=== PATIENT | female | born 1990 | race American Indian/Alaskan Native ===

== ENCOUNTER 2019-04-30 14:17 | Emergency (ER) | payer MEDICAID ==
[2019-04-30 14:30] VITALS: BP 131/81
--- NOTE | 2019-04-30 14:34 | Emergency Department Report ---
Blank Doc - Documentation Documentation: 28 y o female presents with dry cough, feeling weak and sick from mildew in her home a;lso cc of n/v for a while lmp May, unsure of preg
[2019-04-30 15:47] LABS: Basophils # (Auto) 0.1 K/mm3 (0.0-0.1); Basophils % (Auto) 0.7 % (0.0-1.8); Eosinophils % (Auto) 0.4 % (0.0-4.3); Hematocrit 32.8 % (30.3-42.9); Hemoglobin 10.6 gm/dl (10.1-14.3); Lymphocytes # (Auto) 2.8 K/mm3 (1.2-5.4); Lymphocytes % (Auto) 41.4 % (13.4-35.0); Mean Corpuscular HGB Conc 32 % (30-34); Mean Corpuscular Volume 81 fl (79-97); Monocytes # (Auto) 0.4 K/mm3 (0.0-0.8); Monocytes % (Auto) 5.9 % (0.0-7.3); Platelet Count 349 K/mm3 (140-440); Red Blood Count 4.05 M/mm3 (3.65-5.03); Red Cell Distribution Width 17.4 % (13.2-15.2)
[2019-04-30 16:06] LABS: BUN/Creatinine Ratio 12; Blood Urea Nitrogen 7 mg/dL (7-17); Calcium 9.7 mg/dL (8.4-10.2); Hemolysis Index 3
--- NOTE | 2019-04-30 16:33 | Emergency Department Report ---
Vomiting/Diarrhea - HPI Chief Complaint: Nausea/Vomiting/Diarrhea Stated Complaint: VOMITING/DIZZY Time Seen by Provider: 04/30/19 14:27 Duration: 2 weeks. Nausea/Vomiting Severity: Mild Diarrhea Severity: None Pain Severity: None Other History: 28-year-old -[place] female presents to the emergency room complaining of vomiting 1 week dizziness 2 days. Patient denies any vaginal discharge vaginal bleeding or abdominal pain. Patient reports her last menstrual period was sometime in January. Patient does admit to having unprotected intercourse. Patient is 3 para 1. Patient currently does not have a primary care provider or [facility] provider. Patient has a past medical history asthma. Surgical history of a . ED Review of Systems ROS: Stated complaint: VOMITING/DIZZY Other details as noted in HPI Comment: All other systems reviewed and negative Gastrointestinal: nausea, vomiting Neurological: other (lightheadedness) ED Past Medical Hx - Past Medical History Previous Medical History?: Yes Hx Congestive Heart Failure: Yes Hx Psychiatric Treatment: Yes (bipolar) Hx Asthma: Yes - Surgical History Past Surgical History?: Yes Additional Surgical History: - Social History Smoking Status: Never Smoker Substance Use Type: None - Medications Home Medications: Home Medications Medication Instructions Recorded Confirmed Last Taken Type Goldie Root [Goldie] 250 mg PO QID PRN #40 capsule 04/30/19 Unknown Rx Pyridoxine [Vitamin B-6 50MG TAB] 50 mg PO DAILY #30 tab 04/30/19 Unknown Rx Vomiting Diarrhea Exam - Exam General: Vital signs noted. No distress. Alert and acting appropriately. HEENT: Yes Moist Mucous Membranes, No Pharyngeal Erythema, No Pharyngeal Exuda keaton, No Rhinorrhea, No Conjuctival Injection, No Frontal Tenderness, No Maxillary Tenderness Neck: No Adenopathy, No Rigidity Lungs: Yes Clear Lung Sounds, Yes Good Air Exchange, No Wheezes, No Stridor, No Cough, No Nasal Flaring, No Retractions, No Use of Accessory Muscles Heart exam: Regular: Yes, Murmur: No, Tachycardia: No Abdomen: Tenderness: No, Peritoneal Signs: No, Distention: No, Hyperactive Bowel sounds: No Skin exam: Rash: No, Edema: No, Normal turgor: Yes Neurologic: Alert and oriented, no deficits. Musculoskeletal: Unremarkable. ED Course Vital Signs 04/30/19 14:27 Temperature 98.0 F Pulse Rate 87 Respiratory 18 Rate Blood Pressure 131/81 O2 Sat by Pulse 100 Oximetry ED Medical Decision Making - Lab Data Result diagrams: 04/30/19 15:20 04/30/19 15:20 Temp Pulse Resp BP Pulse Ox 98.0 F 87 18 131/81 100 04/30/19 14:27 04/30/19 14:27 04/30/19 14:27 04/30/19 14:27 04/30/19 14:27 Laboratory Tests 04/30/19 04/30/19 04/30/19 15:20 15:20 15:20 WBC 6.8 RBC 4.05 Hgb 10.6 Hct 32.8 MCV 81 MCH 26 L MCHC 32 RDW 17.4 H Plt Count 349 Lymph % (Auto) 41.4 H Emmet % (Auto) 5.9 Eos % (Auto) 0.4 Baso % (Auto) 0.7 Lymph # 2.8 Emmet # 0.4 Eos # 0.0 Baso # 0.1 Seg Neutrophils % 51.6 Seg Neutrophils # 3.5 Sodium 135 L Potassium 4.3 Chloride 100.5 Carbon Dioxide 22 Anion Gap 17 BUN 7 Creatinine 0.6 L Estimated GFR > 60 BUN/Creatinine Ratio 12 Glucose 97 Calcium 9.7 HCG, Qual Positive Critical care attestation.: If time is entered above; I have spent that time in minutes in the direct care of this critically ill patient, excluding procedure time. ED Disposition Clinical Impression: Nausea and vomiting during , Disposition: DC-01 TO HOME OR SELFCARE Is pt being admited?: No Does the pt Need Aspirin: No Condition: Stable Instructions: Hyperemesis Gravidarum (ED), Morning Sickness (ED), (ED) Additional Instructions: vitamins. You can take goldie root and B6 for nausea and vomiting. Follow up with a [facility] provider as listed several below for your convenience. Prescriptions: Goldie Root [Goldie] 250 mg PO QID PRN #40 capsule PRN Reason: Nausea And Vomiting Pyridoxine [Vitamin B-6 50MG TAB] 50 mg PO DAILY #30 tab Referrals: HAILEE CLEMENTS MD [Primary Care Provider] - 3-5 Days [facility] [Provider Group] - 3-5 Days [facility] [Provider Group] - 3-5 Days [facility] [Provider Group] - 3-5 Days Forms: Work/School Release Form(ED), Accompanied Note
== END 2019-04-30 17:00 | disposition home or self-care (01) ==
LOC: ED 14:17
DX: O21.8 Other vomiting complicating pregnancy (principal); O26.899 Other specified pregnancy related conditions, unspecified trimester; R11.0 Nausea; O99.519 Diseases of the respiratory system complicating pregnancy, unspecified trimester; J45.909 Unspecified asthma, uncomplicated; O99.340 Other mental disorders complicating pregnancy, unspecified trimester; F31.9 Bipolar disorder, unspecified; I50.9 Heart failure, unspecified; Z91.013 Allergy to seafood; Z91.018 Allergy to other foods
CPT/HCPCS: 36415; 80048; 84703; 85025

== ENCOUNTER 2019-10-04 13:15 | Outpatient (CLI) | payer MEDICAID ==
[2019-10-04 13:48] VITALS: BP 119/60
[2019-10-04 14:08] LABS: Bacteria,Urine 1+ /HPF (Negative); Bilirubin,Urine NEG (Negative); Blood,Urine NEG (Negative); Color,Urine Yellow (Yellow); Mucus,Urine FEW /HPF; Protein,Urine <15 mg/dL mg/dL (Negative); Urobilinogen,Urine < 2.0 mg/dL (<2.0)
[2019-10-04 14:15] LABS: Amphetamine Screen,Urine PRESUMPTIVE NEGATIVE; Benzodiazepines Screen,Urine PRESUMPTIVE NEGATIVE; Cannabinoid Screen,Urine PRESUMPTIVE NEGATIVE; Cocaine Screen,Urine PRESUMPTIVE NEGATIVE; Methadone Screen,Urine PRESUMPTIVE NEGATIVE; Opiate Screen,Urine PRESUMPTIVE NEGATIVE
[2019-10-04] MEDS ORDERED: LACTATED RINGERS 500 ML IV ONE (14:31)
== END 2019-10-04 15:06 | disposition home or self-care (01) ==
LOC: TRG 13:15
PROVIDERS: ATTEND Obstetrics & Gynecology
DX: O47.03 False labor before 37 completed weeks of gestation, third trimester (principal); Z3A.30 30 weeks gestation of pregnancy
CPT/HCPCS: 80307; 81001

== ENCOUNTER 2019-11-05 20:27 | Outpatient (CLI) | payer MEDICAID ==
[2019-11-05] MEDS ORDERED: LACTATED RINGERS 1,000 ML ONE (22:22)
[2019-11-05] MEDS ORDERED: LACTATED RINGERS 1,000 ML IV ONE (23:03)
[2019-11-05 23:38] LABS: Bilirubin,Urine NEG (Negative); Blood,Urine NEG (Negative); Color,Urine Yellow (Yellow); Mucus,Urine 1+ /HPF; Protein,Urine <15 mg/dL mg/dL (Negative); Urobilinogen,Urine < 2.0 mg/dL (<2.0); WBC,Urine < 1.0 /HPF (0.0-6.0)
[2019-11-06 00:31] VITALS: BP 124/79
== END 2019-11-06 00:45 | disposition home or self-care (01) ==
LOC: TRG 20:27
PROVIDERS: ATTEND Obstetrics & Gynecology
DX: O36.8130 Decreased fetal movements, third trimester, not applicable or unspecified (principal); O26.893 Other specified pregnancy related conditions, third trimester; R25.2 Cramp and spasm; O13.3 Gestational [pregnancy-induced] hypertension without significant proteinuria, third trimester; O36.5930 Maternal care for other known or suspected poor fetal growth, third trimester, not applicable or unspecified; O47.03 False labor before 37 completed weeks of gestation, third trimester; O99.513 Diseases of the respiratory system complicating pregnancy, third trimester; J45.909 Unspecified asthma, uncomplicated; O99.343 Other mental disorders complicating pregnancy, third trimester; F31.9 Bipolar disorder, unspecified; Z3A.35 35 weeks gestation of pregnancy
CPT/HCPCS: 59025; 81001; 96360; J7120

== ENCOUNTER 2019-12-01 19:12 | Outpatient (CLI) | payer MEDICAID ==
[2019-12-01 20:07] VITALS: BP 129/60
== END 2019-12-01 20:20 | disposition home or self-care (01) ==
LOC: TRG 19:12
PROVIDERS: ATTEND Obstetrics & Gynecology
DX: O13.3 Gestational [pregnancy-induced] hypertension without significant proteinuria, third trimester (principal); Z3A.38 38 weeks gestation of pregnancy